=== PATIENT | male | born 1975 | race Caucasian/White ===

== ENCOUNTER 2018-10-10 15:16 | Emergency (ER) | payer OTHER, SELFPAY ==
[2018-10-10 15:21] VITALS: BP 163/91; PULSE 81; RESP 20; TEMP 36.8; O2SAT 95
--- NOTE | 2018-10-10 15:26 | DI.RAD_ITS ---
SYMPTOMS/DIAGNOSIS: RIGHT SHOULDER PAIN X 1 MO RIGHT SHOULDER: Five views were obtained. No bony or soft tissue abnormality seen.
--- NOTE | 2018-10-10 15:39 | W.ED.GENAD ---
Discharge Plan Disposition Patient Disposition: HOME Discharge Details Chief Complaint: Orthopedic Clinical Impression: Other sprain of right shoulder joint, initial encounter Primary Care Provider: Ventura Calderón ED Provider: Ahmet Zimmerman Home Meds and New Rx's Prescriptions: No Action No Known Home Meds RF: 0 Discharge Instructions Instructions: Shoulder Pain (ED) Additional Instructions: Please follow-up with your primary care doctor and orthopedics in the next week please return to the emergency department for increasing pain or any other concern. Referrals: Cisco Luke MD [ [facility] STAFF PHYSICIAN] - Medical Decision Making 43-year-old male with shoulder pain concern for sprain versus strain versus less likely fracture. Will obtain plain films Ortho and primary care follow-up -possible physical therapy referral. 3:50 PM x-ray reviewed by me no fracture no dislocation. Plan as above HPI 43-year-old male with 3 weeks of right shoulder pain after lifting a box up onto a shelf at work. Pain continues patient worried about his rotator cuff and worried that if he does not get seen in the next 3 days he will be able to file Worker's Comp. claim.no other trauma no other complaints no shortness of breath chest pain nausea vomiting diarrhea weight loss. General Date/Time Provider Initiated Documentation: 10/10/18 15:26. Related Data Home Medications Medication Instructions Recorded Confirmed Unknown [No Known Home Meds] 10/10/18 10/10/18 Allergies Allergy/AdvReac Type Severity Reaction Status Date / Time No Known Allergies Allergy Unverified 10/10/18 15:23 General Stated Complaint: Orthopedic BRENDA: 4 Review of Systems Review of Systems All systems reviewed & are unremarkable except as noted in HPI and below PFSH Social History Smoking/Tobacco Use Status: Never Alcohol Intake: former Substance use type: marijuana Do you feel safe at home: Yes Do you feel safe in your relationship?: Yes Exam Narrative Exam Narrative: Pulse oximetry reviewed by me and is normal [] Constitutional: Pt is in no acute distress. he is well appearing. he oriented to person, place, and time. Eyes: conjunctivae are normal. Pupils are equal, round, and reactive to light. No scleral icterus. extraocular muscles are intact Ears/Nose/Mouth/Throat: mucus membranes are moist. Musculoskeletal: neck is supple. normal range of motion in all extremities. Pain elicited with external rotation of right shoulder no bony abnormalities no swelling no tenderness to palpation normal distal neurovascular exam Cardiovascular: Normal rate and rhythm. No lower extremity edema [] Respiratory: effort is normal . pt exhibits no stridor or respiratory distress. [] GastrointestinaI: abdomen soft, +BS, nontender, -rebound, -guarding. Neurological: alert and oriented to person, place, and time. he has normal strength, no tremor. Skin: Skin is warm and dry. he is not diaphoretic. Distal perfusion in tact, warm extremities, cap refill ? 2 seconds. Hem/Lymph/Imm: No cervical LAD, no goiter, no conjunctival pallor Psych: normal mood and affect. behavior is normal Triage and nurse notes reviewed.[] Course Vital Signs Temperature 36.8 C 10/10/18 15:21 Pulse 81 10/10/18 15:21 Respiratory Rate 20 10/10/18 15:21 Blood Pressure 163/91 H 10/10/18 15:21 Pulse Oximetry 95 10/10/18 15:21 Temperature 36.8 C 10/10/18 15:21 Temperature Source Temporal Artery Scan 10/10/18 15:21 Pulse 81 10/10/18 15:21 Respiratory Rate 20 10/10/18 15:21 Respiratory Effort Non-Labored 10/10/18 15:21 Blood Pressure 163/91 H 10/10/18 15:21 Pulse Oximetry 95 10/10/18 15:21 Oxygen Delivery Method Room Air 10/10/18 15:21 Oxygen Flow Rate 0 10/10/18 15:21 Pain Level 1 10/10/18 15:21
--- NOTE | 2018-10-10 15:44 | ED.GENADUL_ITS ---
Discharge Plan Disposition Patient Disposition: HOME Discharge Details Chief Complaint: Orthopedic Clinical Impression: Other sprain of right shoulder joint, initial encounter Primary Care Provider: Ventura Calderón ED Provider: Ahmet Zimmerman Home Meds and New Rx's Prescriptions: No Action No Known Home Meds RF: 0 Discharge Instructions Instructions: Shoulder Pain (ED) Additional Instructions: Please follow-up with your primary care doctor and orthopedics in the next week please return to the emergency department for increasing pain or any other concern. Referrals: Cisco Luke MD [ [facility] STAFF PHYSICIAN] - Medical Decision Making 43-year-old male with shoulder pain concern for sprain versus strain versus less likely fracture. Will obtain plain films Ortho and primary care follow-up - possible physical therapy referral. 3:50 PM x-ray reviewed by me no fracture no dislocation. Plan as above HPI 43-year-old male with 3 weeks of right shoulder pain after lifting a box up onto a shelf at work. Pain continues patient worried about his rotator cuff and worried that if he does not get seen in the next 3 days he will be able to file Worker's Comp. claim.no other trauma no other complaints no shortness of breath chest pain nausea vomiting diarrhea weight loss. General Date/Time Provider Initiated Documentation: 10/10/18 15:26 . Related Data Home Medications Medication Instructions Recorded Confirmed Unknown [No Known Home Meds] 10/10/18 10/10/18 Allergies Allergy/AdvReac Type Severity Reaction Status Date / Time No Known Allergies Allergy Unverified 10/10/18 15:23 General Stated Complaint: Orthopedic BRENDA: 4 Review of Systems Review of Systems All systems reviewed & are unremarkable except as noted in HPI and below PFSH Social History Smoking/Tobacco Use Status: Never Alcohol Intake: former Substance use type: marijuana Do you feel safe at home: Yes Do you feel safe in your relationship?: Yes Exam Narrative Exam Narrative: Pulse oximetry reviewed by me and is normal [] Constitutional: Pt is in no acute distress. he is well appearing. he oriented to person, place, and time. Eyes: conjunctivae are normal. Pupils are equal, round, and reactive to light. No scleral icterus. extraocular muscles are intact Ears/Nose/Mouth/Throat: mucus membranes are moist. Musculoskeletal: neck is supple. normal range of motion in all extremities. Pain elicited with external rotation of right shoulder no bony abnormalities no swelling no tenderness to palpation normal distal neurovascular exam Cardiovascular: Normal rate and rhythm. No lower extremity edema [] Respiratory: effort is normal . pt exhibits no stridor or respiratory distress. [] GastrointestinaI: abdomen soft, +BS, nontender, -rebound, -guarding. Neurological: alert and oriented to person, place, and time. he has normal strength, no tremor. Skin: Skin is warm and dry. he is not diaphoretic. Distal perfusion in tact, warm extremities, cap refill ? 2 seconds. Hem/Lymph/Imm: No cervical LAD, no goiter, no conjunctival pallor Psych: normal mood and affect. behavior is normal Triage and nurse notes reviewed.[] Course Vital Signs Temperature 36.8 C 10/10/18 15:21 Pulse 81 10/10/18 15:21 Respiratory Rate 20 10/10/18 15:21 Blood Pressure 163/91 H 10/10/18 15:21 Pulse Oximetry 95 10/10/18 15:21 Temperature 36.8 C 10/10/18 15:21 Temperature Source Temporal Artery Scan 10/10/18 15:21 Pulse 81 10/10/18 15:21 Respiratory Rate 20 10/10/18 15:21 Respiratory Effort Non-Labored 10/10/18 15:21 Blood Pressure 163/91 H 10/10/18 15:21 Pulse Oximetry 95 10/10/18 15:21 Oxygen Delivery Method Room Air 10/10/18 15:21 Oxygen Flow Rate 0 10/10/18 15:21 Pain Level 1 10/10/18 15:21
== END 2018-10-10 16:00 | disposition home or self-care (01) ==
PROVIDERS: Emergency Provider Emergency Medicine; PCP Family Medicine
DX: S43.491A Other sprain of right shoulder joint, initial encounter (principal); X50.0XXA Overexertion from strenuous movement or load, initial encounter; Y99.0 Civilian activity done for income or pay
CPT/HCPCS: 99283; 73030